=== PATIENT | male | born 1985 | race Caucasian/White ===

== ENCOUNTER 2023-12-20 11:16 | Emergency (ER) | payer OTHER, SELFPAY ==
[2023-12-20 11:35] VITALS: BP 149/110; PULSE 101; RESP 18; TEMP 36.8; O2SAT 96
--- NOTE | 2023-12-20 14:45 | ED.GENADUL_ITS ---
Discharge Plan Disposition Patient Disposition: Home Discharge Details Clinical Impression: Laceration of left middle finger Primary Care Provider: Ruben Trevino ED Provider: Alfonso Moore Home Meds and New Rx's Prescriptions: Discontinued amoxicillin-pot clavulanate 1 TAB tablet 1 ea PO BID Qty: 14 0RF No Action ibuprofen 200 MG capsule 200 mg PO PRN PRN Discharge Instructions Instructions: Finger Laceration (ED) Additional Instructions: You were seen in the emergency department for your left long finger laceration laceration which was closed with sutures that will need to be removed in 7 to 10 days. As we discussed, please keep your wound clean, dry and covered. Please do not soak in a tub, swim or engage in any activities which could introduce dirt into your wound. You may return to the emergency department, go to urgent care or go to your primary care provider in 7 to 10 days to have your stitches removed. As we discussed if you develop any foul-smelling drainage fevers streaking signs of infection or have any other concerns please return to the emergency department. For your pain please take medications as follows: 1. Take acetaminophen (Tylenol), 1,000 mg (two 500 mg tabs) every 6 hours [2. Take ibuprofen (Advil), 400 mg every 6 hours.] HPI General Date/Time Provider Initiated Documentation: 12/20/23 13:52 . HPI Narrative: MDM This is an overall very well-appearing normothermic but mildly tachycardic olcow-tudc-rbqtfiow 38-year-old male with left index finger laceration which will require primary closure. Please see procedure note for details. Patient notes that his tetanus was updated 2 years ago so we will defer tetanus immunization. Given no crush injury I was not suspicious for any acute osseous abnormalities so I did not obtain an x-ray. Patient declines oral analgesia. Patient has intact flexion and extension function in his left long finger so not concern for ligamentous injury. No pain out of proportion to suggest necrotizing soft tissue infection. Patient is not anticoagulated and his bleeding has been controlled with sutures and no indication for anticoagulation reversal. No other injuries. Patient and I discussed return to the ED for fe vers, streaking signs of infection, foul-smelling drainage from his wound, or any other concerns. He understood his return indications and we discussed having him have his stitches out in the next 7 to 10 days. He was discharged with empiric trial of expectant outpatient management. His tachycardia resolved following suturing. HPI This is a previously healthy 38-year-old [id number] male arriving to the emergency department via private vehicle in the setting of a laceration he sustained to his left long finger at approximately 10:30 AM this morning. Patient works at a metal shop. He inadvertently cut his hand on a sharp piece of aluminum. He did not crushes finger. He was able to control the bleeding himself. He was seen by medical staff at his place of employment. Patient had rinsed his laceration extensively at work for approximately 1 and half minutes prior to coming to the emergency department with cold running water. He denies any other injuries. He feels as if he is moving his left finger well. He reports his tetanus was updated approximately 2 years ago when he had a fishhook in his hand. He has no other complaints. Patient is not anticoagulated. Exam General: Well-appearing in no acute distress speaking in complete sentences. Head: Normocephalic, atraumatic. Eye: Extraocular eye movements intact. No conjunctival injection. No scleral icterus. Ear, nose, mouth, throat: Grossly normal inspection. Normal voice, handling secretions normally. Neck: Trachea midline. Cardiovascular: Well-perfused distal extremities. Respiratory: Nonlabored respiration. Gastrointestinal: Nondistended abdomen. Musculoskeletal: Left hand: On the volar surface of the left long finger between the DIP and the tip of the left finger there is a small, crescentic shaped approximately 2 cm hemostatic laceration. Laceration is a flap that violates the subcutaneous tissue. Upon irrigation laceration begins to bleed. Patient has intact flexion and extension function throughout the left long finger across the MCP, PIP, and DIP joints. No signs of damage to nail. Skin: Normal for age and race, grossly normal temperature and turgor. No acute rash. Neurologic: Alert and appropriate, no apparent acute deficits. Psychiatric: Mood and manner are appropriate. Grooming and personal hygiene are appropriate. Related Data Home Medications Medication Instructions Recorded Confirmed ibuprofen 200 mg capsule 200 mg PO PRN PRN 08/31/13 12/20/23 Allergies Allergy/AdvReac Type Severity Reaction Status Date / Time No Known Allergies Allergy Unverified 12/20/23 14:53 General Stated Complaint: Laceration SALIMA: 4 Course Vital Signs Vital signs: Vital Signs Temperature 36.8 C 12/20/23 11:35 Pulse 101 H 12/20/23 11:35 Respiratory Rate 18 12/20/23 11:35 Blood Pressure 149/110 H 12/20/23 11:35 Pulse Oximetry 96 12/20/23 11:35 Temperature 36.8 C 12/20/23 11:35 Temperature Source Temporal Artery Scan 12/20/23 11:35 Pulse 101 H 12/20/23 11:35 Respiratory Rate 18 12/20/23 11:35 Blood Pressure 149/110 H 12/20/23 11:35 Blood Pressure Position Sitting 12/20/23 11:35 Pulse Oximetry 96 12/20/23 11:35 Oxygen Delivery Method Room Air 12/20/23 11:35 Oxygen Flow Rate 0 12/20/23 11:35 Procedures Laceration Laceration 1: Site: hand Side (If applicable): left Size (cm): 2 Description: linear and flap Depth: simple, single layer Local Anesthetic: Lidocaine 1% and other anesthetic (Digital block) Amount of anesthesia used (mL): 4 Pre-repair: wound explored Skin layer closed with: nylon Size (cm): 5-0 (Prolene) Number of sutures: 3 Technique: simple, interrupted Medical Decision Making Quality:SDOH Health Related Social Needs: No Data to Display PFSH All Active Problems (Updated 12/20/23 @ 15:13 by Alfonso Moore MD) Laceration of left middle finger (Acute) Social History Smoking/Tobacco Use Status: Current every day Smoking risk assessment performed?: Yes Drug use: Never Housing: house Do you feel safe at home: Yes Do you feel safe in your relationship?: Yes
[2023-12-20 15:20] VITALS: PULSE 98; TEMP 36.4; O2SAT 97
[2023-12-20 15:31] VITALS: PULSE 98; TEMP 36.4; O2SAT 97
== END 2023-12-20 15:33 | disposition home or self-care (01) ==
PROVIDERS: Emergency Provider Emergency Medicine; PCP Internal Medicine
DX: S61.213A Laceration without foreign body of left middle finger without damage to nail, initial encounter (principal); W26.8XXA Contact with other sharp object(s), not elsewhere classified, initial encounter; Y93.89 Activity, other specified; Y92.89 Other specified places as the place of occurrence of the external cause; Y99.0 Civilian activity done for income or pay
CPT/HCPCS: 12001; 99283